=== PATIENT | male | born 1985 | race African-American/Black ===

== ENCOUNTER 2023-02-21 13:00 | Emergency (ER) | payer MEDICAID ==
[~2023-02-21] VITALS: Ht 177.8 cm; Wt 73.0 kg
[2023-02-21 13:24] VITALS: BP 110/74; PULSE 91; RESP 15; TEMP 98.3; O2SAT 99
[2023-02-21] MEDS ORDERED: CEFTRIAXONE SODIUM 1 G/VIAL IM ONE (14:00)
[2023-02-21] MEDS ORDERED: DOXY100T2 MT (14:05)
[2023-02-21 14:37] LABS: CLARITY URINE CLOUDY (CLEAR); COLOR URINE YELLOW (YELLOW); PH URINE 6.5 (4.5-8.0); SPECIFIC GRAVITY URINE 1.025 (1.005-1.030)
[2023-02-21 14:38] LABS: GLUCOSE URINE NEGATIVE (NEGATIVE); KETONES URINE TRACE (NEGATIVE); LEUKOCYTE ESTERASE URINE 2+ (NEGATIVE); NITRITE URINE NEGATIVE (NEGATIVE); OCCULT BLOOD URINE TRACE (NEGATIVE); PROTEIN URINE TRACE (NEGATIVE)
[2023-02-21 14:55] LABS: WBC URINE TNTC /hpf (0-2)
[2023-02-21 14:56] LABS: MUCUS URINE 1+ /lpf (NONE/TRACE)
[2023-02-21 14:57] LABS: BACTERIA URINE TRACE; SQUAMOUS EPITHELIAL CELL URINE FEW /lpf (RARE/1+)
[2023-02-21] MEDS ORDERED: SULF1TAB48 MT (18:16)
[2023-02-24 04:07] LABS: CHLAMYDIA TRACHOMATIS NAA Negative (Negative); NEISSERIA GONORRHOEAE NAA Positive (Negative)
== END 2023-02-21 15:17 | disposition home or self-care (01) ==
LOC: ER 13:00
DX: N12 Tubulo-interstitial nephritis, not specified as acute or chronic (principal)
CPT/HCPCS: 87491; 87591; 81003; 87086; 96372; 99283; J0696; Z7610 ×2

== ENCOUNTER 2023-03-15 16:31 | Emergency (ER) | payer MEDICAID ==
[~2023-03-15] VITALS: Ht 165.1 cm; Wt 72.0 kg
[~2023-03-15 16:31] MED LIST: DOXY100T2 MT; SULF1TAB48 MT
[2023-03-15 16:38] VITALS: O2SAT 100
[2023-03-15] MEDS ORDERED: ACETAMINOPHEN 325MG TABLET PO ONE (17:15)
[2023-03-15] MEDS ORDERED: METHOCARBAMOL 750MG TABLET PO SCH (17:15)
[2023-03-15 17:34] VITALS: BP 118/72; PULSE 60; RESP 18; TEMP 98.5
[2023-03-15] MEDS ORDERED: METH-653 MT (19:44)
[2023-03-15] MEDS ORDERED: ACET-2708 MT (19:45)
[2023-03-15] MEDS ORDERED: METHOCARBAMOL 750MG TABLET PO NR (20:00)
== END 2023-03-15 17:35 | disposition home or self-care (01) ==
LOC: ER 16:31
DX: M54.6 Pain in thoracic spine (principal); F12.10 Cannabis abuse, uncomplicated; V49.59XA Passenger injured in collision with other motor vehicles in traffic accident, initial encounter; Y93.89 Activity, other specified; Y92.89 Other specified places as the place of occurrence of the external cause; Y99.8 Other external cause status
CPT/HCPCS: 71046; 99283